=== PATIENT | male | born 1945 | race Caucasian/White ===

== ENCOUNTER 2016-10-21 13:27 | Emergency (ER) | payer OTHER ==
[2016-10-21 13:34] VITALS: BP 150/90; PULSE 75; TEMP 97; BMI 32.5
--- NOTE | 2016-10-21 14:50 | PDOC ---
History of Present Illness - General History Source: Patient Exam Limitations: No Limitations - History of Present Illness Initial Comments: 10/21/16 15:23 71-year-old male presents to the ED status post mechanical fall now complaining of right hip/pelvic pain, neck pain, and bilateral shoulder pain. Patient [place] him to [place] backwards. Patient states did not strike his head had no LOC and was able to get up initially after the fall. Patient states has had pain to the neck before and to his lower back but never to his pelvic region. Occurred: reports: just prior to arrival Severity: reports: mild Pain Location: reports: back, neck, pelvis Method of Injury: Yes: fall Modifying Factors: improves with: None Loss of Consciousness: no loss of consciousness Associated Symptoms (Fall): denies symptoms <Lita Lobo - Last Filed: 10/21/16 16:28> - History of Present Illness Initial Comments: 10/21/16 18:08 PT. NOT SEEN BY MADELEINE CLAY TOWER TECHNICIAN SEEN BY LITA LOBO REEL OPERATOR <Madeleine Clay - Last Filed: 10/21/16 18:08> - General Chief Complaint: Injury Stated Complaint: FALL Past History - Psycho/Social/Smoking Cessation Hx Patient Lives Alone: No Lives with/in: spouse/SO <Lita Lobo - Last Filed: 10/21/16 16:28> - Past Medical History Cardiac Disorders: Yes HTN: Yes - Psycho/Social/Smoking Cessation Hx Suicidal Ideation: No Smoking Status: No Smoking History: Never smoked Number of Cigarettes Smoked Daily: 0 <Madeleine Clay - Last Filed: 10/21/16 18:08> - Past Medical History Allergies/Adverse Reactions: Allergies Allergy/AdvReac Type Severity Reaction Status Date / Time No Known Allergies Allergy Verified 10/21/16 13:34 Home Medications: Ambulatory Orders Alprazolam [Xanax] 1 mg PO TID 12/23/12 Candesartan/Hydrochlorothiazid [Atacand Hct 32-12.5 mg Tab] 1 each PO DAILY 02/28 Ibuprofen [Motrin] 400 mg PO QID PRN #30 tablet 12/23/12 Oxymorphone HCl [Opana ER] 30 mg PO BID 12/23/12 Oxycodone HCl/Acetaminophen [Percocet 5-325 mg Tablet] 1 - 2 tab PO Q6H PRN #12 tab MDD 4 10/21/16 Trauma Specific PMHX - Complaint Specific PMHX Neck Injury: Yes <YamilMistya - Last Filed: 10/21/16 16:28> Review of Systems - Review of Systems Able to Perform ROS?: Yes Constitutional: No: Symptoms Reported HEENTM: No: Symptoms Reported Respiratory: No: Symptoms reported Cardiac (ROS): No: Symptoms Reported ABD/GI: No: Symptoms Reported : No: Symptoms Reported Musculoskeletal: Yes: Muscle Pain, Neck Pain Integumentary: No: Symptoms Reported Neurological: No: Symptoms reported, Numbness, Tingling, Dizziness Endocrine: No: Symptoms Reported Hematologic/Lymphatic: No: Symptoms Reported <Lita Lobo - Last Filed: 10/21/16 16:28> *Physical Exam - Vital Signs Last Vital Signs Temp Pulse Resp BP Pulse Ox 97 F L 75 18 150/90 99 10/21/16 13:29 10/21/16 13:29 10/21/16 13:29 10/21/16 13:29 10/21/16 13:29 - Physical Exam Comments: 10/21/16 15:25 General Appearance: Yes: Nourished, Appropriately Dressed. No: Apparent Distress HEENT: positive: EOMI, ISIDRA, TMs Normal. negative: Pale Conjunctivae Neck: positive: Tender (bilateral SCM), Supple, Tender midline (C5-C7). negative: Decreased range of motion Respiratory/Chest: positive: Lungs Clear, Normal Breath Sounds. negative: Chest Tender, Respiratory Distress, Accessory Muscle Use Cardiovascular: positive: Regular Rhythm, Regular Rate. negative: Murmur Gastrointestinal/Abdominal: negative: Soft, Tenderness Musculoskeletal: positive: Other (tender over right posterior iliac crest). negative: Decreased Range of Motion, Vertebral Tenderness Extremity: positive: Normal Capillary Refill, Normal Inspection, Normal Range of Motion. negative: Tender Integumentary: positive: Normal Color, Warm, Moist Neurologic: positive: Motor Strength 5/5 (ambulatory) <Lita Lobo - Last Filed: 10/21/16 16:28> - Vital Signs Last Vital Signs Temp Pulse Resp BP Pulse Ox 97 F L 75 18 150/90 99 10/21/16 13:29 10/21/16 13:29 10/21/16 13:29 10/21/16 13:29 10/21/16 13:29 <Madeleine Clay - Last Filed: 10/21/16 18:08> ED Treatment Course - RADIOLOGY Radiology Studies Ordered: Category Date Time Status PELVIS [RAD] Stat Radiology 10/21/16 15:21 Ordered SPINE-CERVICAL [RAD] Stat Radiology 10/21/16 15:21 Ordered <YamilLita - Last Filed: 10/21/16 16:28> Medical Decision Making - Medical Decision Making 10/21/16 15:27 Patient complains of bilateral shoulder pain, neck pain, and right pelvic/hip pain [place]. Patient on exam had point tenderness at C5 -C7, bilateral SCM, and right iliac crest. Patient ordered for cervical x-ray pelvic x-ray and analgesics. 10/21/16 16:28 Pelvic x-ray negative for fracture or subluxation but does note degenerative lower spine changes with reactive sclerosis. Cervical x-ray shows incomplete visualization of 7 but there is no noted fracture or subluxation noted. There is mention of straining degenerative changes on the lateral view. Patient will be discharged home since he states is feeling better with medication given in fast track. <Lita Lobo - Last Filed: 10/21/16 16:28> *DC/Admit/Observation/Transfer <Lita Lobo - Last Filed: 10/21/16 16:28> <Madeleine Clay - Last Filed: 10/21/16 18:08> Diagnosis at time of Disposition: Neck pain, Right hip pain Fall Qualifiers: Encounter type: initial encounter Qualified Code(s): W19.XXXA - Unspecified fall, initial encounter - Discharge Dispostion Disposition: HOME Condition at time of disposition: Improved - Prescriptions Prescriptions: Oxycodone HCl/Acetaminophen [Percocet 5-325 mg Tablet] 1 - 2 tab PO Q6H PRN #12 tab MDD 4 PRN Reason: Pain - Referrals Referrals: Dara Guzman MD [Primary Care Provider] - - Patient Instructions Printed Discharge Instructions: DI for Contusion Additional Instructions: Please continue take the medication apply ice to the affected area for the next 3 days. Please follow-up with your physician as needed. Otherwise return to ED If symptoms worsen.
[2016-10-21] MEDS ORDERED: ACETAMINOPHEN 325 MG TABLET (FP) PO ONE (15:28)
[2016-10-21] MEDS ORDERED: OXYCODONE/APAP 5/325MG COMBO TABLET PO ONE (15:28)
[2016-10-21] MEDS ORDERED: ACETAMINOPHEN 325 MG TABLET (FP) ONE (15:55)
[2016-10-21] MEDS ORDERED: OXYCODONE/APAP 5/325MG COMBO TABLET ONE (15:58)
== END 2016-10-21 16:37 | disposition home or self-care (01) ==
LOC: JERFT 13:27
DX: M54.2 Cervicalgia (principal); W01.0XXA Fall on same level from slipping, tripping and stumbling without subsequent striking against object, initial encounter; Y93.89 Activity, other specified; Y92.59 Other trade areas as the place of occurrence of the external cause; Y99.8 Other external cause status; I10 Essential (primary) hypertension
CPT/HCPCS: 72050-TC; 72170-TC; 99281-25

== ENCOUNTER 2020-08-07 13:27 | Emergency (ER) | payer OTHER ==
[2020-08-07 13:32] VITALS: BMI 33.6
[2020-08-07 13:51] VITALS: TEMP 98.9
[2020-08-07 14:42] LABS: BASO % 0.6 % (0-2.0); EOS % 1.8 % (0-4.5); HEMATOCRIT 51.8 % (35.4-49); HEMOGLOBIN 17.2 GM/dL (11.7-16.9); LYMPH % 22.7 % (8-40); MCH 30.2 pg (25.7-33.7); MCHC 33.1 g/dl (32.0-35.9); MEAN CELL VOLUME 91.2 fl (80-96); MEAN PLT VOLUME 9.5 fl (7.5-11.1); MONO % 6.8 % (3.8-10.2); NEUT % 68.1 % (42.8-82.8); PLATELET COUNT 140 K/MM3 (134-434); RBC 5.68 M/mm3 (4.00-5.60); WHITE BLOOD COUNT 8.1 K/mm3 (4.0-10.0)
[2020-08-07 14:59] LABS: CHLORIDE 104 mmol/L (98-107); POTASSIUM 4.1 mmol/L (3.5-5.1); SODIUM 139 mmol/L (136-145)
[2020-08-07 15:03] LABS: ALBUMIN 4.4 g/dl (3.4-5.0); ANION GAP 6 MMOL/L (8-16); BLOOD UREA NITROGEN 19.6 mg/dL (7-18); CALCIUM 9.7 mg/dL (8.5-10.1); CO2 29 mmol/L (21-32)
[2020-08-07 15:04] LABS: GLUCOSE,RANDOM 98 mg/dL (74-106)
[2020-08-07 15:06] LABS: SGPT/ALT 52 U/L (13-61)
[2020-08-07 15:07] LABS: CREATININE 1.2 mg/dL (0.55-1.3); SGOT/AST 37 U/L (15-37)
[2020-08-07 15:08] LABS: BILIRUBIN,TOTAL 1.7 mg/dL (0.2-1); TOT PROT 7.9 g/dl (6.4-8.2)
[2020-08-07 15:09] LABS: ALK PHOS 107 U/L (45-117)
[2020-08-07 15:54] VITALS: BP 140/86; PULSE 89
== END 2020-08-07 15:54 | disposition home or self-care (01) ==
LOC: JER 13:27
DX: S46.212A Strain of muscle, fascia and tendon of other parts of biceps, left arm, initial encounter (principal)
CPT/HCPCS: 36415; 71045-TC-FY; 73060-TC-LT-FY; 80053; 82550; 82553; 84484; 85025; 93005; 93010; 99285-25